=== PATIENT | male | born 1995 | race Caucasian/White ===

== ENCOUNTER 2018-09-08 08:17 | Observation (INO) | payer SELFPAY ==
[2018-09-08] MEDS ORDERED: NORMAL SALINE 1000 ML 1,000 ML IV ONE ×2 (09:47→11:07)
[2018-09-08] MEDS ORDERED: ACETAMINOPHEN 325 MG TABLET PO ONE (09:48)
[2018-09-08] MEDS ORDERED: ONDANSETRON HCL INJ/PF 4 MG/2 ML SDV IV ONE (09:48)
--- NOTE | 2018-09-08 09:49 | ER Document Report ---
ED Medical Screen (RME) - General Chief Complaint: Flu Symptoms Stated Complaint: FEVER, VOMITING Time Seen by Provider: 09/08/18 09:43 Primary Care Provider: THA OCHOA MD [Primary Care Provider] - Follow up as needed Mode of Arrival: Ambulatory Information source: Patient Notes: 22-year-old male presents with a 1 day history of fever, chills, nonproductive cough, myalgias, nausea, vomiting. Patient states that he took medication yesterday around 9 PM. He has been trying Tylenol and Aleve without relief of symptoms. He states that around 1 AM the nausea and vomiting started and he is been unable to keep any fluids down since then. He feels dehydrated. There has been a history of sick contacts in his family. He denies any medical problems. I have greeted and performed a rapid initial assessment of this patient. A comprehensive ED assessment and evaluation of the patient, analysis of test results and completion of the medical decision making process will be conducted by additional ED providers. PHYSICAL EXAMINATION: GENERAL: Well-appearing, well-nourished and in no acute distress. HEAD: Atraumatic, normocephalic. EYES: Pupils equal round extraocular movements intact, conjunctiva are normal. ENT: Nares patent NECK: Normal range of motion LUNGS: No respiratory distress Musculoskeletal: Normal range of motion NEUROLOGICAL: Normal speech, normal gait. TRAVEL OUTSIDE OF THE [place] IN LAST 30 DAYS: No - Related Data Allergies/Adverse Reactions: No Known Allergies Allergy (Verified 09/08/18 08:31) Past Medical History - Social History Chew tobacco use (# tins/day): No Frequency of alcohol use: None Drug Abuse: None Renal/ Medical History: Denies: Hx Peritoneal Dialysis Physical Exam - Vital signs Vitals: Temp Pulse Resp BP Pulse Ox 100.3 F 104 H 20 125/89 H 100 09/08/18 08:41 09/08/18 08:41 09/08/18 08:41 09/08/18 08:41 09/08/18 08:41 Course - Vital Signs Vital signs: Temp Pulse Resp BP Pulse Ox 100.3 F 104 H 20 125/89 H 100 09/08/18 08:41 09/08/18 08:41 09/08/18 08:41 09/08/18 08:41 09/08/18 08:41 Doctor's Discharge - Discharge Referrals: THA OCHOA MD [Primary Care Provider] - Follow up as needed
[2018-09-08 10:40] LABS: HEMATOCRIT 40.8 % (37.9-51.0); HEMOGLOBIN 14.2 g/dL (13.5-17.0); MEAN CORPUSCULAR HEMOGLOBIN 29.1 pg (27.0-33.4); MEAN CORPUSCULAR HGB CONC 34.7 g/dL (32.0-36.0); MEAN CORPUSCULAR VOLUME 84 fl (80-97); PLATELET COUNT 303 10^3/uL (150-450); RED BLOOD COUNT 4.86 10^6/uL (4.35-5.55); RED CELL DISTRIBUTION WIDTH 13.4 % (11.5-14.0)
[2018-09-08 10:56] LABS: A TYPE INFLUENZA AG NEGATIVE (NEGATIVE); B INFLUENZA AG NEGATIVE (NEGATIVE)
[2018-09-08 10:57] LABS: ALANINE AMINOTRANSFERASE 18 U/L (21-72); ALBUMIN 4.5 g/dL (3.5-5.0); ALKALINE PHOSPHATASE 81 U/L (38-126); ANION GAP 15 (5-19); ASPARTATE AMINO TRANSFERASE 18 U/L (17-59); BILIRUBIN,DIRECT 0.2 mg/dL (0.0-0.4); BILIRUBIN,TOTAL 2.2 mg/dL (0.2-1.3); BLOOD UREA NITROGEN 14 mg/dL (7-20); CALCIUM 9.4 mg/dL (8.4-10.2); CARBON DIOXIDE 23 mmol/L (22-30); CHLORIDE 103 mmol/L (98-107); GLUCOSE 107 mg/dL (75-110); POTASSIUM 4.1 mmol/L (3.6-5.0); SODIUM 141.1 mmol/L (137-145); TOTAL PROTEIN 7.2 g/dL (6.3-8.2)
[2018-09-08 11:04] LABS: ABSOLUTE LYMPHOCYTES# (MANUAL) 1.7 10^3/uL (0.5-4.7); ABSOLUTE MONOCYTES # (MANUAL) 1.5 10^3/uL (0.1-1.4); ABSOLUTE NEUTROPHILS# (MANUAL) 17.9 10^3/uL (1.7-8.2); BAND NEUTROPHILS % (MANUAL) 8 % (3-5); BASOPHILS % (MANUAL) 0 % (0-2); EOSINOPHILS % (MANUAL) 0 % (0-6); LYMPHOCYTES % (MANUAL) 8 % (13-45); MONOCYTES % (MANUAL) 7 % (3-13); RBC MORPHOLOGY COMMENT NORMO-CYTIC/CHROMIC; SEGMENTED NEUTROPHILS % (MAN) 77 % (42-78); TOTAL CELLS COUNTED 100; TOXIC GRANULATION 1+
[2018-09-08 11:05] LABS: PLATELET COMMENT ADEQUATE
--- NOTE | 2018-09-08 11:07 | ER Document Report ---
ED General - General Chief Complaint: Flu Symptoms Stated Complaint: FEVER, VOMITING Time Seen by Provider: 09/08/18 09:43 Primary Care Provider: THA OCHOA MD [ASSOCIATE] - Follow up as needed Mode of Arrival: Ambulatory Notes: Patient says that he has had sinus congestion for the past month, fever off and on during the past week, and then started vomiting last night. Says he is vo mited 7 or 8 times. No diarrhea. No abdominal pains. He says he is having generalized body aches and feels lightheaded and dizzy. Has been exposed to a lot of people with flu symptoms in the past week. Denies any sore throat, headache, or UTI symptoms. TRAVEL OUTSIDE OF THE [place] IN LAST 30 DAYS: No - Related Data Allergies/Adverse Reactions: No Known Allergies Allergy (Verified 09/08/18 08:31) Past Medical History - General Information source: Patient - Social History Smoking Status: Never Smoker Chew tobacco use (# tins/day): No Frequency of alcohol use: None Drug Abuse: None Family History: Reviewed & Not Pertinent Patient has suicidal ideation: No Patient has homicidal ideation: No Pulmonary Medical History: Reports: None Review of Systems - Review of Systems Notes: REVIEW OF SYSTEMS: CONSTITUTIONAL : Has had intermittent fever. EENT: Denies eye, ear, nose or mouth or throat pain or other symptoms. CARDIOVASCULAR: Denies chest pain. RESPIRATORY: See HPI. GASTROINTESTINAL: See HPI. GENITOURINARY: Denies difficulty or painful urinating, urinary frequency, blood in urine. MUSCULOSKELETAL: Denies back or neck pain. Denies joint pain or swelling. SKIN: Denies rash or skin lesions. NEUROLOGICAL: Denies LOC or altered mental status. Denies headache. Denies sensory loss or motor deficits. ALL OTHER SYSTEMS REVIEWED AND NEGATIVE. Physical Exam - Vital signs Vitals: Temp Pulse Resp BP Pulse Ox 100.3 F 104 H 20 125/89 H 100 09/08/18 08:41 09/08/18 08:41 09/08/18 08:41 09/08/18 08:41 09/08/18 08:41 Interpretation: Febrile Notes: PHYSICAL EXAMINATION: GENERAL: Well-appearing, in no acute distress. HEAD: Atraumatic, normocephalic. ENT: oropharynx clear without exudates. Moist mucous membranes. NECK: Normal range of motion, supple. LUNGS: Breath sounds clear and equal bilaterally. HEART: Regular rate and rhythm without murmurs. ABDOMEN: Soft, nontender. No guarding or rebound. No masses. BACK: No tenderness throughout entire back. EXTREMITIES: Normal range of motion without pain. NEUROLOGICAL: Normal speech, normal gait. Normal sensory, motor, and reflex exams. Awake, alert, and oriented x3. Cranial nerves normal. PSYCH: Normal mood, normal affect. SKIN: Warm, dry, no rashes. Course - Re-evaluation Re-evalutation: 09/08/18 12:46 Patient received a couple of liters of saline in the ED. His chest x-ray shows a large area of pneumonia of the left lung. I spoke with the hospitalist about admitting patient because he has a white count of over 20,000 with 8 bands present. And, since he is vomiting and cannot keep anything down, I am afraid he will not be able to take outpatient medications. - Vital Signs Vital signs: Temp Pulse Resp BP Pulse Ox 97.9 F 82 16 118/42 L 100 09/08/18 12:38 09/08/18 12:38 09/08/18 12:38 09/08/18 12:38 09/08/18 12:38 - Laboratory Result Diagrams: 09/08/18 10:03 09/08/18 10:03 Laboratory results interpreted by me: 09/08/18 09/08/18 09/08/18 10:03 10:03 11:12 WBC 21.0 H Band Neutrophils % 8 H Lymphocytes % (Manual) 8 L Abs Neuts (Manual) 17.9 H Abs Monocytes (Manual) 1.5 H Total Bilirubin 2.2 H ALT 18 L Urine Protein 30 H Urine Ketones 20 H Urine Urobilinogen 4.0 H - Diagnostic Test Radiology results interpreted by me: 09/08/18 12:48 Large area of pneumonia in the left lung. Discharge - Discharge Clinical Impression: Pneumonia Condition: Stable Disposition: ADMITTED INPATIENT Admitting Provider: Hospitalist Unit Admitted: Medical Floor Referrals: THA OCHOA MD [ASSOCIATE] - Follow up as needed
[2018-09-08 11:35] LABS: APPEARANCE,URINE CLEAR; BILIRUBIN,URINE NEGATIVE (NEGATIVE); COLOR,URINE AMBER; GLUCOSE, URINE NEGATIVE (NEGATIVE); KETONES,URINE 20 mg/dL (NEGATIVE); LEUKOCYTE ESTERASE,URINE NEGATIVE (NEGATIVE); NITRITE,URINE NEGATIVE (NEGATIVE); PROTEIN,URINE 30 mg/dL (NEGATIVE); URINE SPECIFIC GRAVITY 1.027
--- NOTE | 2018-09-08 12:10 | RADIOLOGY REPORT (SQ) ---
EXAM DESCRIPTION: CHEST 2 VIEWS COMPLETED DATE/TIME: 09/08/2018 11:53 am REASON FOR STUDY: Cough and fever COMPARISON: None. EXAM PARAMETERS: NUMBER OF VIEWS: two views TECHNIQUE: Digital Frontal and Lateral radiographic views of the chest acquired. RADIATION DOSE: NA LIMITATIONS: none FINDINGS: LUNGS AND PLEURA: Extensive infiltrate superior segment of the left lower lobe. MEDIASTINUM AND HILAR STRUCTURES: No masses or contour abnormalities. HEART AND VASCULAR STRUCTURES: Heart normal size. No evidence for failure. BONES: No acute findings. HARDWARE: None in the chest. OTHER: No other significant finding. IMPRESSION: Extensive round pneumonia superior segment left lower lobe. TECHNICAL DOCUMENTATION: JOB ID: [id number] [employer]- All Rights Reserved Reading location - IP/workstation name: [email or web address]
[2018-09-08] MEDS ORDERED: CEFTRIAXONE 2 GM/D5W RTU 2 GM/50 ML RTUPB IV ONE (12:14)
[2018-09-08] MEDS ORDERED: ALBUTEROL SULFATE 0.083% NEB 2.5 MG/3 ML AMPUL NEB PRN (13:58)
[2018-09-08] MEDS ORDERED: ACETAMINOPHEN 325 MG TABLET PO PRN (13:58)
[2018-09-08] MEDS: HEPARIN SOD (PORCINE) 5,000 UNIT/ML 1 ML SYRINGE SUBCUT SCH ×2 (14:46→21:47)
[2018-09-08] MEDS ORDERED: NORMAL SALINE 1000 ML 1,000 ML IV PRN (14:56)
--- NOTE | 2018-09-08 15:11 | PDOC H&P ---
History of Present Illness Admission Date/PCP: 09/08/18 12:43 Patient complains of: Nausea vomiting and cough History of Present Illness: BENOIT CESAR is a 22 year old male with no significant medical history. He states that he was having some sinus difficulties approximately 1 month ago. He does have allergies and has been having a cough. He had nasal congestion. Quite frankly he did not feel bad until yesterday when he began to have a fever, nausea and occasional vomiting. He does report that his mother had pneumonia approximately a month ago. Everyone in the household has been sick. A left middle lobe infiltrate was documented on x-ray as well as a markedly elevated white blood cell count. The patient was referred to the hospitalist service for admission. Past Medical History Cardiac Medical History: Reports: None Pulmonary Medical History: Reports: None EENT Medical History: Reports: None Neurological Medical History: Reports: None Endocrine Medical History: Reports: None Renal/ Medical History: Reports: Nephrolithiasis Malignancy Medical History: Reports: None GI Medical History: Reports: None Musculoskeltal Medical History: Reports: None Skin Medical History: Reports: None Psychiatric Medical History: Reports: None Traumatic Medical History: Reports: None Hematology: Reports: None Infectious Medical History: Reports: None Past Surgical History Past Surgical History: Reports: Orthopedic Surgery - Left ACL repair, right shoulder labrum repair Social History Information Source: Patient Lives with: Family Smoking Status: Never Smoker Frequency of Alcohol Use: None Hx Recreational Drug Use: No Hx Prescription Drug Abuse: No - Advance Directive Resuscitation Status: Full Code Surrogate healthcare decision maker:: No documented healthcare proxy. He would default to his mother. Family History Family History: Reviewed & Not Pertinent Parental Family History Reviewed: Yes Children Family History Reviewed: NA Sibling(s) Family History Reviewed.: Yes Medication/Allergy Allergies/Adverse Reactions: No Known Allergies Allergy (Verified 09/08/18 08:31) Review of Systems Constitutional: PRESENT: as per HPI, fatigue, fever(s) Eyes: ABSENT: visual disturbances Ears: ABSENT: hearing changes Nose, Mouth, and Throat: PRESENT: other - Sinus congestion. ABSENT: mouth pain, sore throat Cardiovascular: ABSENT: chest pain, edema, palpitations Respiratory: PRESENT: cough. ABSENT: hemoptysis, sputum Gastrointestinal: ABSENT: abdominal pain, constipation, diarrhea, heartburn Genitourinary: ABSENT: dysuria Musculoskeletal: ABSENT: deformity, joint swelling Integumentary: ABSENT: lesions, rash Neurological: ABSENT: confusion, tremor(s), vertigo Psychiatric: ABSENT: anxiety, depression Endocrine: ABSENT: cold intolerance, heat intolerance, polydipsia, polyphagia Hematologic/Lymphatic: ABSENT: easy bruising, lymphadenopathy Allergic/Immunologic: PRESENT: seasonal rhinorrhea Physical Exam Vital Signs: Temp Pulse Resp BP Pulse Ox 97.9 F 82 16 118/42 L 100 09/08/18 12:38 09/08/18 12:38 09/08/18 12:38 09/08/18 12:38 09/08/18 12:38 Intake & Output 09/07/18 09/08/18 09/09/18 06:59 06:59 06:59 Intake Total 2049 Balance 2049 Weight 79.2 kg General appearance: PRESENT: no acute distress, cooperative, well-developed Head exam: PRESENT: atraumatic, normocephalic Eye exam: PRESENT: conjunctiva pink, EOMI. ABSENT: scleral icterus Ear exam: PRESENT: normal external ear exam Mouth exam: PRESENT: moist, tongue midline Teeth exam: ABSENT: dental caries, dental tenderness Neck exam: PRESENT: full ROM. ABSENT: carotid bruit, JVD, lymphadenopathy Respiratory exam: PRESENT: rhonchi - Mild on the left, symmetrical, unlabored. ABSENT: accessory muscle use, rales, stridor, wheezes Cardiovascular exam: PRESENT: RRR, +S1, +S2 GI/Abdominal exam: PRESENT: normal bowel sounds, soft. ABSENT: distended, tenderness Rectal exam: PRESENT: deferred Gentrourinary exam: ABSENT: indwelling catheter Extremities exam: ABSENT: pedal edema Musculoskeletal exam: PRESENT: ambulatory Neurological exam: PRESENT: alert, awake, oriented to person, oriented to place, oriented to time, oriented to situation, CN II-XII grossly intact Psychiatric exam: PRESENT: normal mood. ABSENT: agitated, anxious Focused psych exam: ABSENT: restlessness Skin exam: PRESENT: dry, normal color, warm Results Laboratory Results: 09/08/18 10:03 09/08/18 10:03 09/08/18 09/08/18 09/08/18 10:03 10:03 11:12 WBC 21.0 H RBC 4.86 Hgb 14.2 Hct 40.8 MCV 84 MCH 29.1 MCHC 34.7 RDW 13.4 Plt Count 303 Seg Neutrophils % Not Reportable Lymphocytes % Not Reportable Monocytes % Not Reportable Eosinophils % Not Reportable Basophils % Not Reportable Absolute Neutrophils Not Reportable Absolute Lymphocytes Not Reportable Absolute Monocytes Not Reportable Absolute Eosinophils Not Reportable Absolute Basophils Not Reportable Sodium 141.1 Potassium 4.1 Chloride 103 Carbon Dioxide 23 Anion Gap 15 BUN 14 Creatinine 0.85 Est GFR ( Amer) > 60 Est GFR (Non-Af Amer) > 60 Glucose 107 Calcium 9.4 Total Bilirubin 2.2 H AST 18 ALT 18 L Alkaline Phosphatase 81 Total Protein 7.2 Albumin 4.5 Urine Color VERONIKA Urine Appearance CLEAR Urine pH 8.0 Ur Specific [place] 1.027 Urine Protein 30 H Urine Glucose (UA) NEGATIVE Urine Ketones 20 H Urine Blood NEGATIVE Urine Nitrite NEGATIVE Ur Leukocyte Esterase NEGATIVE Urine WBC (Auto) 0 Urine RBC (Auto) 4 Impressions: Chest X-Ray 09/08/18 11:04 IMPRESSION: Extensive round pneumonia superior segment left lower lobe. Assessment & Plan - Diagnosis (1) Pneumonia Qualifiers: Pneumonia type: due to unspecified organism Laterality: left Lung location: lower lobe of lung Qualified Code(s): J18.1 - Lobar pneumonia, unspecified organism Is this a current diagnosis for this admission?: Yes Plan: The patient will be initiated on ceftriaxone and azithromycin. I will also add Flonase for sinus congestion. Guaifenesin will be administered to help loosen secretions. Nebulizer therapy will be available if needed. (2) Nausea & vomiting Qualifiers: Vomiting Intractability: unspecified Is this a current diagnosis for this admission?: Yes Plan: With IV fluids the patient's nausea is improved. I have started him on a regular diet. Antiemetic therapy available if needed. (3) Leucocytosis Qualifiers: Leukocytosis type: bandemia Qualified Code(s): D72.825 - Bandemia Is this a current diagnosis for this admission?: Yes Plan: We will repeat his CBC. With intravenous fluid and antibiotic therapy I expect it to decrease. We will continue to monitor. - Time Time Spent: 50 to 70 Minutes Medications reviewed and adjusted accordingly: Yes Anticipated discharge: Home - Inpatient Certification Based on my medical assessment, after consideration of the patient's c omorbidities, presenting symptoms, or acuity I expect that the services needed warrant INPATIENT care.: Yes I certify that my determination is in accordance with my understanding of Medicare's requirements for reasonable and necessary INPATIENT services [42 CFR 412.3e].: Yes Medical Necessity: Need For IV Fluids, Need for IV Antibiotics
[2018-09-08] MEDS ORDERED: AZITHROMYCIN 500 MG in DEXTROSE 5%-WATER 250 ML IV SCH (18:00)
[2018-09-08] MEDS: GUAIFENESIN 600 MG TABLET.SA PO SCH (21:46)
[2018-09-08] MEDS: FAMOTIDINE 20 MG TABLET PO SCH (21:46)
[2018-09-08] MEDS: FLUTICASONE NASAL SPRAY 50 MCG/SPRY 120 SPRAY/16 GM NASL SCH (21:46)
[2018-09-09] MEDS: HEPARIN SOD (PORCINE) 5,000 UNIT/ML 1 ML SYRINGE SUBCUT SCH (06:39)
[2018-09-09 07:03] LABS: ABSOLUTE BASOPHILS # (AUTO) 0.1 10^3/uL (0.0-0.2); ABSOLUTE EOSINOPHILS # (AUTO) 0.1 10^3/uL (0.0-0.6); ABSOLUTE MONOCYTES (AUTO) 1.4 10^3/uL (0.1-1.4); ABSOLUTE NEUT (AUTO) 13.9 10^3/uL (1.7-8.2); BASOPHILS % (AUTO) 0.3 % (0-2); EOSINOPHILS % (AUTO) 0.3 % (0-6); HEMATOCRIT 36.6 % (37.9-51.0); HEMOGLOBIN 12.5 g/dL (13.5-17.0); LYMPHOCYTES % (AUTO) 11.5 % (13-45); MEAN CORPUSCULAR HGB CONC 34.2 g/dL (32.0-36.0); MEAN CORPUSCULAR VOLUME 85 fl (80-97); PLATELET COUNT 253 10^3/uL (150-450); RED BLOOD COUNT 4.31 10^6/uL (4.35-5.55); RED CELL DISTRIBUTION WIDTH 13.3 % (11.5-14.0); SEGMENTED NEUTROPHILS % (AUTO) 79.9 % (42-78); TOTAL CELLS COUNTED % (AUTO) 100 %; WHITE BLOOD COUNT 17.5 10^3/uL (4.0-10.5)
[2018-09-09 07:27] LABS: ALANINE AMINOTRANSFERASE 25 U/L (21-72); ALKALINE PHOSPHATASE 64 U/L (38-126); ANION GAP 8 (5-19); ASPARTATE AMINO TRANSFERASE 11 U/L (17-59); BILIRUBIN,DIRECT 0.2 mg/dL (0.0-0.4); BILIRUBIN,TOTAL 0.9 mg/dL (0.2-1.3); BLOOD UREA NITROGEN 13 mg/dL (7-20); CALCIUM 8.6 mg/dL (8.4-10.2); CARBON DIOXIDE 25 mmol/L (22-30); CHLORIDE 106 mmol/L (98-107); GLUCOSE 90 mg/dL (75-110); POTASSIUM 4.3 mmol/L (3.6-5.0); SODIUM 139.3 mmol/L (137-145); TOTAL PROTEIN 5.3 g/dL (6.3-8.2)
[2018-09-09] MEDS: FLUTICASONE NASAL SPRAY 50 MCG/SPRY 120 SPRAY/16 GM NASL SCH (09:36)
[2018-09-09] MEDS: FAMOTIDINE 20 MG TABLET PO SCH (09:36)
[2018-09-09] MEDS: GUAIFENESIN 600 MG TABLET.SA PO SCH (09:36)
[2018-09-09] MEDS ORDERED: CEFTRIAXONE 1 GM/D5W RTU 1 GM/50 ML RTUPB IV SCH (12:00)
[2018-09-09 12:05] VITALS: BP 124/60
--- NOTE | 2018-09-09 19:12 | PDOC DISCHARGE SUMMARY ---
General - Admit/Disc Date/PCP Admission Date/Primary Care Provider: 09/08/18 12:43 Discharge Date: 09/09/18 - Discharge Diagnosis (1) Pneumonia Is this a current diagnosis for this admission?: Yes Summary: Community-acquired. Discharged on Ceftin and azithromycin. Follow-up with primary care. (2) Nausea & vomiting Is this a current diagnosis for this admission?: Yes Summary: Resolved at the time of discharge (3) Leucocytosis Is this a current diagnosis for this admission?: Yes Summary: White blood cell count improved slightly. I explained to the patient that complete normalization will take 3-4 more days. - Additional Information Resuscitation Status: Full Code Discharge Diet: As Tolerated Discharge Activity: Activity As Tolerated Prescriptions: Azithromycin [Zithromax 250 mg Tablet] 250 mg PO DAILY 5 Days #5 tablet Cefuroxime Axetil [Ceftin 500 mg Tablet] 1 tab PO BID 10 Days #20 tablet Home Medications: Acetaminophen [Tylenol 325 mg Tablet] 650 mg PO Q4HP PRN tablet 09/09/18 Azithromycin [Zithromax 250 mg Tablet] 250 mg PO DAILY 5 Days #5 tablet 09/09/18 Cefuroxime Axetil [Ceftin 500 mg Tablet] 1 tab PO BID 10 Days #20 tablet 09/09/18 Guaifenesin [Mucinex Sr 600 mg Tablet.sa] 600 mg PO Q12 tablet.sa 09/09/18 History of Present Illness History of Present Illness: BENOIT CESAR is a 22 year old male with no significant medical history. He states that he was having some sinus difficulties approximately 1 month ago. He does have allergies and has been having a cough. He had nasal congestion. Quite frankly he did not feel bad until yesterday when he began to have a fever, nausea and occasional vomiting. He does report that his mother had pneumonia approximately a month ago. Everyone in the household has been sick. A left middle lobe infiltrate was documented on x-ray as well as a markedly elevated white blood cell count. The patient was referred to the hospitalist service for admission. Hospital Course Hospital Course: The patient had a benign hospital course. This morning he was feeling much better. There was no shortness of breath. He had mild pleuritic chest pain but has not required supplemental oxygen. Physical Exam Vital Signs: Temp Pulse Resp BP Pulse Ox 98.3 F 75 16 124/60 97 09/09/18 15:15 09/09/18 15:15 09/09/18 15:15 09/09/18 11:33 09/09/18 15:15 Pulse Oximeter Continuous Start: 09/08/18 13:58 Freq: RTQ4 Status: Complete Protocol: Document 09/08/18 15:53 [facility] (Rec: 09/08/18 15:54 [facility] [id number]) Pulse Oximetry Assessment Oxygen Saturation (92-100) 98 Oxygen Delivery Method Room Air Fraction of Inspired Oxygen (FIO2) 21 Equipment Usage Equipment Standby Continuous SpO2 Machine # -- Intake & Output 09/08/18 09/09/18 09/10/18 06:59 06:59 06:59 Intake Total 2300 Balance 2300 Weight 79.2 kg General appearance: PRESENT: no acute distress, cooperative, well-developed Head exam: PRESENT: normocephalic Respiratory exam: PRESENT: clear to auscultation emely, symmetrical, unlabored. ABSENT: rales, rhonchi, wheezes Cardiovascular exam: PRESENT: RRR, +S1, +S2 GI/Abdominal exam: PRESENT: normal bowel sounds, soft. ABSENT: tenderness Neurological exam: PRESENT: alert, awake, oriented to person, oriented to place, oriented to time, oriented to situation, CN II-XII grossly intact Psychiatric exam: PRESENT: appropriate affect, normal mood Results Laboratory Results: 09/09/18 06:26 09/09/18 06:26 09/09/18 09/09/18 06:26 06:26 WBC 17.5 H RBC 4.31 L Hgb 12.5 L Hct 36.6 L MCV 85 MCH 29.0 MCHC 34.2 RDW 13.3 Plt Count 253 Seg Neutrophils % 79.9 H Lymphocytes % 11.5 L Monocytes % 8.0 Eosinophils % 0.3 Basophils % 0.3 Absolute Neutrophils 13.9 H Absolute Lymphocytes 2.0 Absolute Monocytes 1.4 Absolute Eosinophils 0.1 Absolute Basophils 0.1 Sodium 139.3 Potassium 4.3 Chloride 106 Carbon Dioxide 25 Anion Gap 8 BUN 13 Creatinine 0.82 Est GFR ( Amer) > 60 Est GFR (Non-Af Amer) > 60 Glucose 90 Calcium 8.6 Total Bilirubin 0.9 AST 11 L ALT 25 Alkaline Phosphatase 64 Total Protein 5.3 L Albumin 3.0 L Impressions: Chest X-Ray 09/08/18 11:04 IMPRESSION: Extensive round pneumonia superior segment left lower lobe. Qualifiers - * PATIENT BEING DISCHARGED WITH ANY OF THE FOLLOWING DIAGNOSIS: No Plan Discharge Plan: Complete antibiotics as prescribed. Ibuprofen for pleuritic pain. Robitussin DM for cough suppression. Follow-up with primary care provider. We discussed going back to work. I told him he would be sensitive to respiratory inhalants such as dust and mold and to try and avoid those for at least 4-5 days. 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 Told him to absolutely avoid it if he is experiencing any lightheaded or dizziness. I did explain that his stamina would be limited but return relatively quickly. Time Spent: Less than 30 Minutes
== END 2018-09-09 15:43 | disposition home or self-care (01) ==
LOC: ER 08:17 → EH 12:43 → INTOOBSV 12:43 → 2N 15:21
PROVIDERS: ADMIT Internal Medicine; ATTEND Internal Medicine
DX: J18.1 Lobar pneumonia, unspecified organism (principal); R11.2 Nausea with vomiting, unspecified; D72.825 Bandemia; Z87.442 Personal history of urinary calculi; J30.2 Other seasonal allergic rhinitis
CPT/HCPCS: 99284; 96361; 96374; 36415 ×2; 87040; 87086; 85025 ×2; 80053 ×2; 81001; 87804; 71046; J1644; J3490; J2405; J7060; J7030; J0456; J0696 ×2